=== PATIENT | female | born 1995 | race African-American/Black ===

== ENCOUNTER 2017-01-30 12:55 | Emergency (ER) | payer SELFPAY ==
[2017-01-30 13:34] LABS: Bilirubin Negative (Negative); Glucose, Urine (Dipstick) Negative (Negative); Ketone, Urine Negative (Negative); Nitrite Negative (Negative); Protein, Urine (Dipstick) Negative (Neg-Trace)
[2017-01-30 13:38] LABS: #Basophils 0.1 thou/uL (0.0-0.2); #Lymphocytes 1.2 thou/uL (1.20-3.40); #Monocytes 0.3 thou/uL (0.11-0.59); #Neutrophils 3.8 thou/uL (1.40-6.50); %Basophils 0.9 % (0.0-1.0); %Eosinophils 0.9 % (0.0-10.0); %Lymphocytes 21.4 % (21.0-51.0); %Monocytes 6.4 % (0.0-10.0); Hematocrit 47.8 % (36.0-47.0); Mean Platelet Volume 7.5 fL (7.4-10.4); Red Blood Cell (RBC) Count 4.83 mill/uL (4.20-5.40); White Blood Cell (WBC) Count 5.4 thou/uL (4.8-10.8)
[2017-01-30 13:39] LABS: Bacteria/HPF None Seen HPF (None Seen); Hyaline Casts/LPF 0-3 HYALINE CAST LPF (0-3 Hyaline); RBC/HPF 0-3 HPF (0-3); Squamous Epithelial 0-3 HPF (0-3); WBC/HPF 0-3 HPF (0-3)
[2017-01-30 13:43] LABS: Blood, Urine Negative (Negative)
[2017-01-30 13:58] LABS: ALT (SGPT) 10 U/L (8-55); AST (SGOT) 18 U/L (5-34); Alkaline Phosphatase 69 U/L (40-150); Anion Gap 13 mmol/L (10-20); BUN (Urea Nitrogen) 6 mg/dL (7.0-18.7); Bilirubin, Total 0.7 mg/dL (0.2-1.2); Calc. Creatinine Clearance 0 mL/min (70-130); Calcium 9.9 mg/dL (7.8-10.44); Carbon Dioxide 24 mmol/L (22-29); Chloride 105 mmol/L (98-107); Estimated GFR-MDRD Greater than 90; Globulin 3.9 g/dL (2.4-3.5); Protein, Total 8.9 g/dL (6.0-8.3)
[2017-01-30] MEDS ORDERED: ISOVUE-370 76%-LOCM 1 ML ONE (14:53)
--- NOTE | 2017-01-30 16:47 | CT ---
ABDOMEN AND PELVIC CT SCAN WITH IV CONTRAST: 01/30/17 HISTORY: 21-year-old female with right sided abdominal pain and cramping which began several days ago. The dixie ng bases are clear. the visualized liver, gallbladder, pancreas, spleen, adrenal glands are unremark able. No renal calculus or acute obstruction. Normal appearing appendix. There is some minimal free pel conrad and cul-de-sac fluid. Uterus and adnexal regions are unremarkable. No evidence for bowel obstruc tion, abnormal fluid collection, abscess or adenopathy. IMPRESSION: Trace free pelvic and cul-de-sac fluid. No significant acute process in the abdomen and pelvis. POS: [facility]
== END 2017-01-30 17:10 | disposition home or self-care (01) ==
LOC: ERS 12:55
DX: K21.9 Gastro-esophageal reflux disease without esophagitis (principal); F31.9 Bipolar disorder, unspecified; F17.210 Nicotine dependence, cigarettes, uncomplicated
CPT/HCPCS: 36415; 74177; 80053; 81003; 81025; 85025

== ENCOUNTER 2017-04-04 12:16 | Emergency (ER) | payer OTHER, SELFPAY ==
[2017-04-04] MEDS ORDERED: Ketorolac Tromethamine 30 MG/ML VIAL ONE (13:30)
[2017-04-04] MEDS ORDERED: Dexamethasone 10 MG/ML VIAL ONE (13:30)
[2017-04-04] MEDS ORDERED: Lidocaine Viscous Sol 2% 15 ml UD Cup ONE (13:38)
[2017-04-04] MEDS ORDERED: Bupivacaine 0.5% 10 ML VIAL ONE (13:38)
[2017-04-04 13:41] LABS: #Basophils 0.1 thou/uL (0.0-0.2); #Eosinphils 0.1 thou/uL (0.0-0.7); #Lymphocytes 1.6 thou/uL (1.20-3.40); #Monocytes 0.5 thou/uL (0.11-0.59); #Neutrophils 4.7 thou/uL (1.40-6.50); %Basophils 2.1 % (0.0-1.0); %Eosinophils 1.8 % (0.0-10.0); %Lymphocytes 22.1 % (21.0-51.0); %Monocytes 7.3 % (0.0-10.0); %Neutrophils 66.8 % (42.0-75.0); Hemoglobin 15.4 g/dL (12.0-16.0); Mean Corpuscular HGB CONC 33.6 g/dL (32.0-36.0); Mean Corpuscular Hemoglobin 31.4 pg (27.0-31.0); Mean Corpuscular Volume 93.5 fl (81.0-99.0); Mean Platelet Volume 6.9 fL (7.4-10.4); Platelet Count 300 thou/uL (130-400); RBC Distribution Width 11.6 % (11.5-14.5); Red Blood Cell (RBC) Count 4.91 mill/uL (4.20-5.40); White Blood Cell (WBC) Count 7.1 thou/uL (4.8-10.8)
[2017-04-04 13:54] LABS: Anion Gap 15 mmol/L (10-20); BUN (Urea Nitrogen) 5 mg/dL (7.0-18.7); Calc. Creatinine Clearance 0 mL/min (70-130); Calcium 9.6 mg/dL (7.8-10.44); Carbon Dioxide 21 mmol/L (22-29); Chloride 105 mmol/L (98-107); Estimated GFR-MDRD Greater than 90; Glucose 77 mg/dL (70-105); Sodium 137 mmol/L (136-145)
[2017-04-04] MEDS ORDERED: Clindamycin/D5W 900 mg/50 ml Premix Bag ONE (16:17)
[2017-04-04] MEDS ORDERED: Ondansetron HCl/PF 4 MG/2 ML Vial ONE (16:17)
--- NOTE | 2017-04-04 16:49 | CT ---
CT OF THE SOFT TISSUES OF THE NECK WITH IV CONTRAST: INDICATIONS: History of left-sided dental pain and neck swelling for two weeks. FINDINGS: There is disruption of the posterior bone, adjacent to a posterior-most left maxillary molar with enh ancing periapical soft tissue density, measuring 1.9 cm (image 21, series 3), suspicious for periodon dora disease with an associated periapical abscess. There is some soft tissue gas seen within the reg ion of the gums, as well as the adjacent left private investigator space, best seen on image 23 of series 3. T here is soft tissue swelling of the left private investigator space, as well as edema seen within the left para pharyngeal space and the left submandibular region. There are mildly prominent lymph nodes within th e submandibular region, one seen measuring 1.2 cm (image 41 of series 3). Submandibular glands and parotid glands appear within normal limits. The visualized aerodigestive tr act appears within normal limits. There is a small amount of periapical lucency involving the left p osterior mandibular molar without evidence of osseous disruption. The visualized paranasal sinuses a nd mastoid air cells are clear. The visualized lung apices are clear. IMPRESSION: 1. Findings suspicious for a small periapical abscess involving the left posterior maxillary molar w ith surrounding phlegmon in the adjacent left private investigator space, left parapharyngeal space, and left s ubmandibular region. No large drainable fluid collection is grossly evident. 2. Enlargement of the left submandibular lymph nodes. 3. Small amount of periapical lucency involving a left posterior mandibular molar, likely reflecting an additional region of periodontal disease. 4. Findings were called to Dr. Nolasco at 4:10 p.m. on 04/04/2017. CODE CR POS: [facility]
== END 2017-04-04 16:37 | disposition home or self-care (01) ==
LOC: SCSER 12:16
DX: K08.89 Other specified disorders of teeth and supporting structures (principal); F31.9 Bipolar disorder, unspecified; F17.210 Nicotine dependence, cigarettes, uncomplicated
CPT/HCPCS: 70491; 80048; 83605; 85025; 96374; 96375; 99406; J1100; J1885; J2270; J2405; J3490

== ENCOUNTER 2017-04-11 12:30 | Emergency (ER) | payer SELFPAY ==
[2017-04-11] MEDS ORDERED: Ibuprofen 800 MG TAB ONE (14:26)
[2017-04-11] MEDS ORDERED: HYDROcodone/Acetaminophen 5/325 mg Tablet ONE (14:26)
== END 2017-04-11 15:09 | disposition home or self-care (01) ==
LOC: ERS 12:30
DX: K02.9 Dental caries, unspecified (principal); F31.9 Bipolar disorder, unspecified; F17.210 Nicotine dependence, cigarettes, uncomplicated
CPT/HCPCS: 99282

== ENCOUNTER 2017-07-12 20:54 | Emergency (ER) | payer SELFPAY | END 2017-07-12 21:00 | disposition left against medical advice (07) | LOC: ERS 20:54 | DX: Z53.21 Procedure and treatment not carried out due to patient leaving prior to being seen by health care provider (principal) ==

== ENCOUNTER 2018-05-16 10:06 | Emergency (ER) | payer OTHER, SELFPAY ==
[2018-05-16 11:22] LABS: #Eosinphils 0.1 thou/uL (0.0-0.7); #Lymphocytes 1.8 thou/uL (1.20-3.40); #Monocytes 0.5 thou/uL (0.11-0.59); #Neutrophils 5.3 thou/uL (1.40-6.50); %Basophils 0.4 % (0.0-1.0); %Eosinophils 1.1 % (0.0-10.0); %Lymphocytes 23.5 % (21.0-51.0); %Monocytes 6.7 % (0.0-10.0); %Neutrophils 68.3 % (42.0-75.0); Hemoglobin 14.7 g/dL (12.0-16.0); Mean Corpuscular HGB CONC 33.9 g/dL (32.0-36.0); Mean Corpuscular Hemoglobin 33.6 pg (27.0-31.0); Mean Corpuscular Volume 99.3 fL (78.0-98.0); Mean Platelet Volume 7.9 fL (7.4-10.4); Platelet Count 231 thou/uL (130-400); RBC Distribution Width 12.2 % (11.5-14.5); Red Blood Cell (RBC) Count 4.37 mill/uL (4.20-5.40); White Blood Cell (WBC) Count 7.8 thou/uL (4.8-10.8)
[2018-05-16 13:04] LABS: Bilirubin Negative (Negative); Blood, Urine Small (Negative); Clarity CLOUDY (Clear); Glucose, Urine (Dipstick) Negative (Negative); Leukocyte Large (Negative); Nitrite Negative (Negative); Protein, Urine (Dipstick) Negative (Neg-Trace); Specific Gravity, Urine 1.008 (1.002-1.036)
[2018-05-16 13:06] LABS: Bacteria/HPF Rare-Few HPF (None Seen); Hyaline Casts/LPF 0-3 HYALINE CAST LPF (0-3 Hyaline); Pathc Cast-AUWi Flag 0.58 (0-2.49); WBC/HPF 21-50 HPF (0-3)
--- NOTE | 2018-05-16 13:59 | ULT ---
ULTRASOUND PELVIS TRANSVAGINAL: Date: 05/16/18 HISTORY: Discharge. COMPARISON: Pelvic ultrasound from 2017. TECHNIQUE: Real-time Swift scale with color Doppler and spectral analysis of the gravid uterus performed transabd ominal approach. FINDINGS: There is a single, viable intrauterine , with average ultrasound age of 19 weeks/0 days. Est imated date of delivery is 10/10/18. Estimated weight is 10 oz, 48th percentile. Cervix not well seen as the urinary bladder was not distended, although appears to measure approximat cameron 3.0 cm. Biometry: BPD: 4.32 cm, 19 weeks/0 days HC: 16.44 cm, 19 weeks/1 day AC: 13.55 cm, 19 weeks/0 days FL: 2.94 cm, 19 weeks/0 days Amniotic fluid index: 12.3 cm. heart rate documented at 150 beats/minute. position is breech and placenta is anterior. Visualized bladder, lateral ventricle, cerebellum, three vessel cord, four chamber heart, stomach, cord insertion, and nose and lips were all normal. IMPRESSION: Normal viable single intrauterine . POS: [facility]
[2018-05-17 18:56] LABS: Chlamydia by PCR Not Detected (NotDetected); GC by PCR Not Detected (NotDetected)
== END 2018-05-16 14:05 | disposition home or self-care (01) ==
LOC: ERS 10:06
DX: O23.42 Unspecified infection of urinary tract in pregnancy, second trimester (principal); O20.9 Hemorrhage in early pregnancy, unspecified; O99.342 Other mental disorders complicating pregnancy, second trimester; F31.9 Bipolar disorder, unspecified; O99.332 Smoking (tobacco) complicating pregnancy, second trimester; Z3A.18 18 weeks gestation of pregnancy
CPT/HCPCS: 36415; 76805; 76856; 81003; 81015; 84702; 85025; 86900; 86901; 87086; 87480; 87491; 87510; 87591; 87660

== ENCOUNTER 2018-09-15 10:01 | Outpatient (CLI) | payer OTHER | END 2018-09-15 10:02 | disposition home or self-care (01) | LOC: BICMRI 10:01 | PROVIDERS: ATTEND Family Medicine | DX: Z53.9 Procedure and treatment not carried out, unspecified reason (principal) ==

== ENCOUNTER 2018-09-28 10:01 | Day surgery (SDC) | payer OTHER ==
[2018-09-28 10:42] VITALS: BP 129/77; TEMP 98.3
[2018-09-28] MEDS ORDERED: hydrALAZINE 20 MG/ML VIAL SLOW IVP PRN (10:59)
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
[2018-09-28] MEDS ORDERED: METRONIDAZOLE IVPB SCH ×2 (11:30→12:00)
[2018-09-28] MEDS ORDERED: ADMIXTURE FEE IVPB SCH (12:00)
== END 2018-09-28 17:23 | disposition home or self-care (01) ==
LOC: L&D/OP 10:01
PROVIDERS: ATTEND Obstetrics & Gynecology
DX: O47.1 False labor at or after 37 completed weeks of gestation (principal); O98.313 Other infections with a predominantly sexual mode of transmission complicating pregnancy, third trimester; A59.01 Trichomonal vulvovaginitis; Z3A.38 38 weeks gestation of pregnancy
CPT/HCPCS: 96365; 96366; 99282

== ENCOUNTER 2018-10-04 09:53 | Inpatient (IN) | payer OTHER ==
[~2018-10-04 09:53] MED LIST: Bupivacaine 0.25% HCL 30 ML VIAL ONE; Lidocaine 2% MPF 10 ML AMP (For Epidural Use) ONE
[2018-10-04 10:10] VITALS: BMI 29.8
[2018-10-04] MEDS ORDERED: Docusate 100 MG CAP PO PRN (11:36)
[2018-10-04] MEDS ORDERED: hydrALAZINE 20 MG/ML VIAL SLOW IVP PRN (11:36)
[2018-10-04] MEDS ORDERED: Butorphanol Tartrate 1 MG/ML VIAL SLOW IVP PRN (11:36)
[2018-10-04] MEDS ORDERED: Carboprost 250 MCG/ML AMP IM PRN (11:36)
[2018-10-04] MEDS ORDERED: Ibuprofen 800 MG TAB PO PRN (11:36)
[2018-10-04] MEDS ORDERED: Promethazine HCl 25 MG/ML VIAL IM PRN (11:36)
[2018-10-04] MEDS ORDERED: Methylergonovine 0.2 MG/ML VIAL IM PRN (11:36)
[2018-10-04] MEDS ORDERED: Lidocaine 1% (PF) 30 ML VIAL SC PRN (11:36)
[2018-10-04] MEDS ORDERED: Ondansetron PF 4 MG/2 ML Vial IVP PRN (11:36)
[2018-10-04] MEDS ORDERED: Acetaminophen 500 MG TAB PO PRN (11:36)
[2018-10-04] MEDS ORDERED: NS / Oxytocin 40 units/1000ml 1,000 ML IV PRN (11:36)
[2018-10-04] MEDS ORDERED: Misoprostol 200 MCG TAB PR PRN (11:36)
[2018-10-04] MEDS ORDERED: Misoprostol 100 MCG TAB VAG SCH (11:45)
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
[2018-10-04 13:04] LABS: Hemoglobin 13.2 g/dL (12.0-16.0); Mean Corpuscular HGB CONC 34.6 g/dL (32.0-36.0); Mean Corpuscular Volume 95.5 fL (78.0-98.0); Mean Platelet Volume 9.5 fL (7.4-10.4); Platelet Count 170 thou/uL (130-400); White Blood Cell (WBC) Count 8.3 thou/uL (4.8-10.8)
[2018-10-04 13:43] LABS: Syphilis Antibody Nonreactive (Nonreactive); Syphilis Antibody Index 0.02 S/CO (<1.00 Non-Reactive)
[2018-10-04 13:43] LABS: Hep B Surf Ag Non-Reactive S/CO (NonReactive)
[2018-10-04 15:44] LABS: Amphetamine Not Detected (NotDetected); Barbiturates Screen Not Detected (NotDetected); Benzodiazepine Screen Not Detected (NotDetected); Cocaine Metabolite Screen Not Detected (NotDetected); Medtox Control Line Valid? VALID (VALID); Medtox Reader # READER 1; Methadone Not Detected (NotDetected); Methamphetamine Not Detected (NotDetected); Opiate Screen Not Detected (NotDetected); Oxycodone Screen Not Detected (NotDetected); Phencyclidine (PCP) Not Detected (NotDetected); THC/Cannabinoid Screen Not Detected (NotDetected); Tricyclic Screen Not Detected (NotDetected)
[2018-10-04] MEDS: Lactated Ringer's 1,000 ML IV SCH ×2 (18:50→20:46)
[2018-10-04] MEDS: Misoprostol 100 MCG TAB VAG SCH ×2 (20:46→22:44)
--- NOTE | 2018-10-04 21:40 | PDOC.LDPN ---
Labor & Delivery Progress Note - Subjective Subjective: comfortable - Objective Vital signs reviewed and normal: yes General: NAD Uterine fundus: non tender SVE: @ 2130 by nurse Alyssa Dilation: 1 Effacement: 25% Station: -3 FHT: category 2 (baseline 135/mod earnestine/occasional decels, had one for 4 min and one for 2) [place] contractions every: none Resuscitative measures: maternal position change (for decels as both happened while on back) - Assessment (1) affected by growth restriction Code(s): O36.5990 - MATERN CARE FOR OTH OR SUSP POOR FETL GRTH, UNSP TRI, UNSP Current Visit: Yes Status: Acute Comment: Induction for IUGR SVE unchanged Pt had decels after cytotec, currently cat 1 for last 30 minutes, but previously had prolonged decel for 4 minutes that resolved with position change -Will start pitocin -Monitor FHT -Cervical check q4h -Epidural if desired by patient Plan: pitocin for augmentation Addendum - Attending - Attending Attestation Date/Time: 10/04/182144 Case discussed with Dr. Combs and heart tracing reviewed. Currently back to category 1 - with moderate variability, accelerations and no decelerations. SVE- unchanged. Will start low dose pitocin for induction.
[2018-10-04] MEDS ORDERED: NS w/ Oxytocin 10 units 500 ML IV SCH (21:45)
--- NOTE | 2018-10-05 01:45 | PDOC.LDPN ---
Labor & Delivery Progress Note - Subjective Subjective: comfortable (sleeping, once woke up complaining of painful ctx) - Objective Vital signs reviewed and normal: yes General: NAD Uterine fundus: non tender SVE: @ [address] Combs Dilation: 1.5 Effacement: 25% Station: -3 FHT: category 1 (mod earnestine/baseline 140/+ accels/no decels), variability present [place] contractions every: 1-2 minutes - Assessment (1) affected by growth restriction Code(s): O36.5990 - MATERN CARE FOR OTH OR SUSP POOR FETL GRTH, UNSP TRI, UNSP Current Visit: Yes Status: Acute Comment: Induction for IUGR SVE changed to 1.5/25/-3 -Continue -Monitor FHT -Cervical check q4h, if cervix more anterior at next check will attempt to place balloon -Epidural if desired by patient Plan: continue plan of care
[2018-10-05] MEDS: Lactated Ringer's 1,000 ML IV SCH ×2 (05:45→23:33)
--- NOTE | 2018-10-05 06:01 | PDOC.LDPN ---
Labor & Delivery Progress Note - Subjective Subjective: painful contractions - Objective Vital signs reviewed and normal: yes General: breathing through contractions Uterine fundus: non tender SVE: @ [address] Combs Dilation: 1.5 Effacement: 75% Station: -3 FHT: category 2 (baseline 130/mod earnestine/few variable decels), variability present [place] contractions every: 1-3 minutes - Assessment (1) affected by growth restriction Code(s): O36.5990 - MATERN CARE FOR OTH OR SUSP POOR FETL GRTH, UNSP TRI, UNSP Current Visit: Yes Status: Acute Comment: Induction for IUGR SVE changed to 1.5/75/-3 -Continue pit, currently at 6 -Monitor FHT -Cervical check q4h, consider balloon -Epidural if desired by patient Plan: continue plan of care
--- NOTE | 2018-10-05 07:55 | PDOC.EVN ---
Event Note - Event Note Event Note: Discussed patient case with Dr. Cole and Dr. Thornton and the decision was made to proceed with balloon. Went to patient room to consent her for procedure and discuss procedure with her. While the nurses and myself were in the room the FHT turned into category 2 with deep decels. Several other nurses appropriately rushed into the room to help. Pitocin was stopped, patient was rolled to her left side. I rechecked her and she was unchanged. The baby heart tones started recovering and as things began settling down the patient got a phone call and began saying very rude and inappropriate comments about the nurses while they were still in the room. After everyone else had left I had a conversation with the patient with just Karen and patients nurse Liliana explaining to the patient what happened and why everyone rushed into her room and that it is important for her to be respectful of others, including the nurses and that they were only trying to help. Patient expressed understanding and agreed to be more friendly towards the nurses. I explained to the patient that my shift has ended and Dr. Manning and Dr. Cole would be taking over her care until she is ready to deliver and they would call me back if need be. Patient was agreeable to this. Patient declined any procedures until her grandmother arrives. She consented to an emergent section if need arises though.
[2018-10-05] MEDS ORDERED: Fentanyl 4 mcg/Bup 0.1% Cadd 100 ML ONE ×2 (08:12→15:00)
[2018-10-05] MEDS ORDERED: Lidocaine 1.5%/Epinephrine 1:200,000 5 ML AMPUL IJ ONE (08:38)
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
[2018-10-05] MEDS ORDERED: Acetaminophen 325 MG TAB PO PRN (12:44)
[2018-10-05] MEDS ORDERED: ePHEDrine/0.9% NaCl/PF SYRINGE 50 mg/10 ml SLOW IVP PRN (12:44)
[2018-10-05] MEDS ORDERED: Promethazine HCl 25 MG SUPP PR PRN ×2 (12:44→16:51)
[2018-10-05] MEDS ORDERED: diphenhydrAMINE 50 MG/ML VIAL IVP PRN ×3 (12:44→16:51)
[2018-10-05] MEDS ORDERED: Ondansetron PF 4 MG/2 ML Vial IVP PRN ×3 (12:44→16:51)
[2018-10-05] MEDS ORDERED: Promethazine HCl 25 MG/ML VIAL IM PRN ×2 (12:44)
[2018-10-05] MEDS ORDERED: Lactated Ringer's 500 ML IV PRN (12:44)
[2018-10-05] MEDS ORDERED: Naloxone HCl 0.4 mg/ml Vial IVP PRN ×6 (12:44→16:51)
[2018-10-05] MEDS ORDERED: Ketorolac Tromethamine 30 MG/ML VIAL IVP PRN (12:44)
[2018-10-05] MEDS ORDERED: Naloxone HCl 0.4 mg/ml Vial IV PRN ×2 (12:44→16:51)
[2018-10-05] MEDS ORDERED: Communication Order-Pharmacy FS SCH ×3 (12:45→17:00)
[2018-10-05] MEDS ORDERED: Fentanyl 4 mcg/Bupivacaine 0.1% Cassette 100 ML EPIDURAL SCH (12:45)
[2018-10-05] MEDS ORDERED: Bicitra 30 ML UDCUP ONE (15:34)
[2018-10-05] MEDS ORDERED: hydrALAZINE 20 MG/ML VIAL SLOW IVP PRN (15:39)
[2018-10-05] MEDS ORDERED: Adacel (T-DAP) 0.5 ML SYRINGE IM ONE (15:39)
[2018-10-05] MEDS ORDERED: Bupivacaine 0.25% HCL 30 ML VIAL ONE (15:43)
[2018-10-05] MEDS ORDERED: MORPHINE 5 MG/10 ML PF VIAL ONE (15:45)
[2018-10-05] MEDS ORDERED: Azithromycin 500 MG VIAL ONE (15:52)
[2018-10-05 15:58] LABS: pH (Cord, venous) 7.19 (7.32-7.43)
[2018-10-05] MEDS ORDERED: Azithromycin 500 MG in Sodium Chloride 0.9% 250 ML 250 ML IVPB ONE (16:00)
[2018-10-05] MEDS ORDERED: Ketorolac Tromethamine 30 MG/ML VIAL ONE ×2 (16:07→16:12)
[2018-10-05] MEDS ORDERED: PROPOFOL 200 MG/20 ML VIAL ONE (16:07)
[2018-10-05] MEDS ORDERED: Ondansetron PF 4 MG/2 ML Vial ONE ×2 (16:07→16:11)
[2018-10-05] MEDS ORDERED: PHENYLEPHRINE-NS 100 MCG/ML 10 ML SYRINGE ONE (16:07)
[2018-10-05] MEDS ORDERED: Succinylcholine Chloride 20 MG/ML 10 ml SYRINGE FS ONE (16:07)
[2018-10-05] MEDS ORDERED: Dexamethasone 20 MG/5 ML VIAL ONE (16:07)
[2018-10-05] MEDS ORDERED: Dexamethasone 4 mg/ml Vial ONE (16:12)
[2018-10-05] MEDS ORDERED: Oxytocin 10 UNITS/ML VIAL ONE (16:15)
[2018-10-05] MEDS ORDERED: L&D-Morphine 4 MG/ML VIAL SLOW IVP PRN (16:51)
[2018-10-05] MEDS ORDERED: Ondansetron HCl/PF 4 MG/2 ML Vial IVP PRN (16:51)
[2018-10-05] MEDS ORDERED: HYDROmorphone 2 MG/ML VIAL SLOW IVP PRN (16:51)
[2018-10-05] MEDS ORDERED: Meperidine HCl/PF 25 MG/ML VIAL SLOW IVP PRN (16:51)
[2018-10-05] MEDS: Ketorolac Tromethamine 30 MG/ML VIAL IVP PRN (20:16)
[2018-10-05] MEDS ORDERED: Ibuprofen 800 MG TAB PO SCH (22:45)
--- NOTE | 2018-10-05 22:51 | PDOC.EVN ---
Event Note - Event Note Event Note: 23 y/o ->1011 who delivered via pLTCS @ 1541 on 10/05 for prolonged bradycardia. Examined 5 hours post-op Pt reports abdominal pain, improved with toradol. She reports minimal lochia. She has not gotten to see her baby yet and is concerned about that. She is going to bottle feed. She has not been up out of bed yet. She is tolerating clear liquids, denies N/V, SOB, chest pain, leg swelling. PE: gen - alert, oriented, NAD Abd - soft, fundus firm 1cm below umbilicus, appropriately tender Skin - incision with dressing intact, no bleeding on dressing Ext - no edema A/P: continue routine post- care -Will give another dose of ancef as pt was stat section and unable to completely prep abdomen -Toradol and norco for pain, will transition to ibuprofen in AM -Discussed condition with patient that in the setting of the de- saturations they were watching closely in nursery but would bring him as soon as he stabilized -ADAT
[2018-10-05] MEDS ORDERED: CEFAZOLIN 1 GM VIAL SLOW IVP SCH (23:55)
[2018-10-05] MEDS ORDERED: ceFAZolin 1 GM/D5W 1 GM in Premix Bag 1 BAG IVPB SCH (23:59)
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
--- NOTE | 2018-10-06 03:17 | OP ---
DATE OF PROCEDURE: 10/05/2018 RESIDENT SURGEON: Rhonda Manning DO [employer]ATIONAL [employer]GER SURGEON: Elizabeth Combs MD ATTENDING SURGEON: Marisa Cole MD PROCEDURE PERFORMED: Primary low-transverse section. PREOPERATIVE DIAGNOSES: 1. Term intrauterine . 2. Intrauterine growth restriction. 3. Trichomonas infection complicating status post treatment. 4. Right hip injury. 5. Persistent bradycardia. POSTOPERATIVE DIAGNOSES: 1. Term intrauterine , delivered. 2. Intrauterine growth restriction. 3. Trichomonas infection complicating status post treatment. 4. Right hip injury. 5. Primary low transverse section. 6. Persistent bradycardia. ANESTHESIA: Epidural and general anesthesia. INDICATIONS FOR PROCEDURE: This is a 23-year-old G2, P0-0-1-0 at 39 and 2 weeks who presented to Labor and Delivery for a scheduled induction of labor for intrauterine growth restriction. heart tones dropped into the 60s for a period of 10 minutes. The patient was taken back to the operating room for a stat section due to bradycardia. PROCEDURE IN DETAIL: The potential for a section was discussed with the patient at length prior to the induction of labor. The patient was taken back to the operating room where she was placed in the supine position with a left tilt and prepped and draped. General anesthesia was utilized as there was no time to bolus the patient's epidural. Cefazolin 2 g IV was given. A Pfannenstiel incision was made with a scalpel and carried down to the level of the fascia, which was sharply nicked. The fascial cut was extended bluntly. The inferior and superior edges of the fascial cut edges were elevated with Todd clamps and the underlying rectus muscles were sharply and bluntly dissected free. The recti were divided digitally and retracted manually. The peritoneum was entered bluntly and retracted manually. The bladder blade was placed. A low transverse score was made with the scalpel and the uterus was entered in the midline with the scalpel. The hysterotomy was extended manually. The was noted to be vertex and was easily delivered by fundal pressure. Mouth and nares were bulb suctioned. Cord was clamped and cut and grossly normal male was handed to waiting nurse. Cord gas was sent for gas analysis. Cord blood was collected. Placenta was extracted and found to be intact with three-vessel cord and sent for pathology. The uterus was externalized and the endometrium was curetted with a dry lap. The bladder blade was replaced and the uterus was closed with a running locking #1 monofilament suture followed by running nonlocking #1 monofilament imbricating suture. Following this, hemostasis was noted. The uterus was internalized and the hysterotomy was again noted to be hemostatic. The peritoneum was closed using 2 -0 chromic. The fascia was closed with a running nonlocking 0 PDS suture. The subcutaneous tissue was irrigated and bleeders were cauterized. The subcutaneous tissue was brought together using 2-0 plain gut. The skin was approximated with 4-0 monofilament. Steri-Strips were placed along with a pressure dressing. Due to stat nature of the section, no count was able to be performed prior to the section, but x-ray did confirm that there were no instruments or supplies within the abdomen. The patient tolerated the procedure well, was taken to the recovery room in stable condition. ESTIMATED BLOOD LOSS: 300 mL. Official report states 1500 mL, however. (cBL = 192 mL based on hematocrit pre and post op) COMPLICATIONS: None. SPECIMENS: Cord blood sent to the lab for blood type and cord gas sent for analysis. Placenta sent for evaluation. FINDINGS: Grossly normal male infant with Apgars of 7 and 8. Placenta was noted to be small, but with three-vessel cord. The placenta was sent for pathology. DRAINS: Barnes to gravity, draining clear urine. Attending Note: I was present and participated in the above documented procedure. Indication: bradycardia, unresolving Procedure: STAT PLTCS, under general. Details: Uncomplicated LTCS. After skin incision, sharp dissection down to fascia. Fascia nicked. Blunt dissection down to uterus. Low transfer incision performed on uterus. quickly delivered (<2 mins) in OA position. Good cry and tone at delivery. Cord clamped and cut. Passed to awaiting edgardo team. Hysterotomy closed in 2-layers. Hemostatic. Peritoneum closed. Fascia closed. Skin closed with suture. Count correct x 3. UOP 200 ml clear urine. QBL 1500 ml. EBL 300 ml. cBL at 24 hours 192 ml. Patient transferred to after routine recovery. Placenta sent to path. Cord gases reassuring. LoryCO Job ID: [id number] MTDD
[2018-10-06] MEDS: Ketorolac Tromethamine 30 MG/ML VIAL IVP PRN (03:27)
[2018-10-06] MEDS ORDERED: HYDROcodone/Acetaminophen 5/325 mg Tablet PO PRN (05:00)
[2018-10-06 06:26] LABS: Hemoglobin 12.2 g/dL (12.0-16.0); Mean Corpuscular HGB CONC 33.2 g/dL (32.0-36.0); Mean Corpuscular Hemoglobin 31.7 pg (27.0-31.0); Mean Corpuscular Volume 95.6 fL (78.0-98.0); Mean Platelet Volume 9.5 fL (7.4-10.4); Platelet Count 156 thou/uL (130-400); RBC Distribution Width 12.6 % (11.5-14.5); Red Blood Cell (RBC) Count 3.85 mill/uL (4.20-5.40); White Blood Cell (WBC) Count 14.9 thou/uL (4.8-10.8)
[2018-10-06] MEDS: Prenatal Vitamin 1 TAB PO SCH (08:47)
[2018-10-06] MEDS: HYDROcodone/Acetaminophen 5/325 mg Tablet PO PRN ×2 (08:48→21:01)
--- NOTE | 2018-10-06 10:39 | RAD ---
ABDOMINAL RADIOGRAPH: 10/05/18 INDICATION: Stat section. Surgical count. FINDINGS: No radiopaque foreign bodies are seen overlying the imaged abdomen and pelvis. There are extrinsic linear densities from overlying artifact. There are scattered subtle areas of air density overlying the pelvis likely postoperative in nature.
[2018-10-06] MEDS: Ibuprofen 800 MG TAB PO SCH ×3 (14:07→21:00)
[2018-10-07] MEDS: Ibuprofen 800 MG TAB PO SCH ×4 (01:57→20:07)
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
[2018-10-07] MEDS: HYDROcodone/Acetaminophen 5/325 mg Tablet PO PRN (09:10)
[2018-10-07] MEDS: Prenatal Vitamin 1 TAB PO SCH (09:10)
[2018-10-07] MEDS: Lactated Ringer's 1,000 ML IV SCH (21:50)
[2018-10-08] MEDS: Ibuprofen 800 MG TAB PO SCH ×2 (01:16→03:20)
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
[2018-10-08 07:49] VITALS: BP 124/82; TEMP 97.8
[2018-10-08] MEDS: Prenatal Vitamin 1 TAB PO SCH (09:09)
== END 2018-10-08 12:29 | disposition home or self-care (01) | DRG 787 ==
LOC: L&D/OP 09:53 → L&D 12:12 → 3SW 10-05 19:19
PROVIDERS: ADMIT Student in an Organized Health Care Education/Training Program; ATTEND Student in an Organized Health Care Education/Training Program
PROC: 10907ZC Drainage of Amniotic Fluid, Therapeutic from Products of Conception, Via Natural or Artificial Opening (ICD-10-PCS; principal; 2018-10-05)
PROC: 10D00Z1 Extraction of Products of Conception, Low, Open Approach (ICD-10-PCS; 2018-10-05)
PROC: 3E0P7VZ Introduction of Hormone into Female Reproductive, Via Natural or Artificial Opening (ICD-10-PCS; 2018-10-05)
PROC: 3E033VJ Introduction of Other Hormone into Peripheral Vein, Percutaneous Approach (ICD-10-PCS; 2018-10-05)
PROC: 0U7C7ZZ Dilation of Cervix, Via Natural or Artificial Opening (ICD-10-PCS; 2018-10-05)
DX: O36.5930 Maternal care for other known or suspected poor fetal growth, third trimester, not applicable or unspecified (principal); O98.82 Other maternal infectious and parasitic diseases complicating childbirth; O99.344 Other mental disorders complicating childbirth; O76 Abnormality in fetal heart rate and rhythm complicating labor and delivery; O71.89 Other specified obstetric trauma; O61.0 Failed medical induction of labor; Z3A.39 39 weeks gestation of pregnancy; Z37.0 Single live birth; Z87.891 Personal history of nicotine dependence; A59.01 Trichomonal vulvovaginitis; F43.21 Adjustment disorder with depressed mood
CPT/HCPCS: 36415; 51702; 74018; 80306; 82805; 85027; 86780; 86850; 86900; 86901; 87340; 88307; 90715; 99285; C1726; J0456; J0595; J0690; J1100; J1885; J2001; J2274; J2405; J2590; J2704; J3490; S0020

== ENCOUNTER 2018-10-12 10:37 | Day surgery (SDC) | payer OTHER ==
[2018-10-12 11:16] VITALS: BMI 27.3
--- NOTE | 2018-10-12 12:08 | PDOC.FPRHP ---
- History of Present Illness Chief Complaint: Elevated blood pressure post History of Present Illness: 23 y/o @ 39.2 WGA delivered via stat pLTCS at 1541 on 10/05/18 for NRFHT with prolonged bradycardia and IUGR. Pt denies any complications since the delivery and states that she and baby have done well. Today the pt was at her follow up visit when her blood pressure was noted to be 130's/80's and repeated to be 140's/80's. Pt was subsequently sent here to be triaged and have labs drawn. Pt denies any headache, fever, chills, n/v, vaginal bleeding/ discharge, dysuria, or vision changes. She does note some increased swelling in her legs today and lower abdominal pain at her incision site. She states her PO intake has been appropriate. Denies a history of HTN or problems with elevated blood pressures during . FHx is significant for HTN in her mother. - OB Labs 10/04/2018 Blood type: O RH: positive HIV: negative Rubella: immune Quad screen: negative Urine drug screen: not done Gonorrhea: negative Chlamydia: negative Pap Smear: NILM 1 hour gtt: 135 A1c: 5.3 H&H: 12.9 / 37.3 Platelets: 273 - Allergies/Adverse Reactions Allergies Allergy/AdvReac Type Severity Reaction Status Date / Time No Known Drug Allergies Allergy Verified 10/12/18 11:10 - Home Medications Medication Instructions Recorded Confirmed Type Ibuprofen [Motrin] 800 mg PO Q6HR #30 tab 10/08/18 10/12/18 Rx - History PMHx: None PSHx: section FHx: Maternal HTN and DM Social: Previous Tobacco use, no alcohol or drug use - Review of Systems General: denies: fever/chills, night sweats, fatigue Eyes: denies: vision changes Respiratory: denies: shortness of breath, exercise intolerance Cardiovascular: reports: edema (lower extremity swelling). denies: chest pain, palpitation Gastrointestinal: reports: abdominal pain (incisional). denies: nausea, vomiting Genitourinary: denies: dysuria, polyuria, discharge Skin: denies: rashes Musculoskeletal: denies: pain, tenderness, stiffness Neurological: denies: numbness, syncope, weakness - Vital signs BP: [] HR: [] RR: [] Tmax: [] Pox: []% on [] Wt: [] - Physical Exam Constitutional: NAD, awake, alert and oriented, well developed HEENT: normocephalic and atraumatic, EOMI, no scleral icterus Neck: supple, FROM Heart: RRR, normal S1/S2, other (trace non-pitting edema to bilateral LE) Lungs: CTAB, no respiratory distress, good air movement Abdomen: soft, other (mild-mod tenderness to low transverse incision, CDI) Musculoskeletal: normal tone, ROM grossly normal Neurological: no focal deficit, CN II-XII intact, normal sensation Skin: no rash/lesions FMR H&P: Results - Labs Result Diagrams: 10/12/18 12:17 10/12/18 12:17 FMR H&P: A/P - Problem List (1) Elevated blood pressure affecting , antepartum Status: Acute Code(s): O16.9 - UNSPECIFIED MATERNAL HYPERTENSION, UNSPECIFIED TRIMESTER (2) Post-op pain Status: Acute Code(s): G89.18 - OTHER ACUTE POSTPROCEDURAL PAIN - Plan Elevated blood pressure -Automated BP cuff trending pressures over next couple hours, currently 141/83 -NPO until labs result d/t possible need for Mg -Labs: CBC, CMP, urine protein/cr, uric acid -Pt notes frustration with being here and her visit today, may also be contributing to elevated pressures -Will DC if labs return normal and BP remain <160 sys with close follow up with her pressures Post operative pain -pt has been taking ibuprofen for pain, reports not receiving a rx for norco -pain may be a component to her elevated bp, will treat appropriately Discussed case with Dr. Lopez Dispo: dependent on pending lab results FMR H&P: Upper Level - Plan Date/Time: 10/12/18 1207 I, [], have evaluated this patient and agree with findings/plan as outlined by business management intern resident. Pertinent changes/additions are listed here. Addendum - Attending - Attending Attestation Date/Time: 10/13/18 1216 I personally evaluated the patient and discussed the management with Dr. Monte I agree with the History, Examination, Assessment and Plan documented above with any addition or exceptions noted below. BPs mostly mild range or normotensive in triage. Pt is asymptomatic Labs significant for elevated urine protein to creatinine ratio but no evidence of end organ damage. Presentation consistent with preeclampsia without severe features. Can d/c to home with followup BP check scheduled for Wednesday Strict return/preeclampsia precautions reviewed. Pt also reports she did not get her [place] Rx prior to leaving hospital last week. has had issues with pain control and has not been controlled with ibuprofen alone. Forgotten RX confirmed with staff. Rx for #15 norco provided after [facility] was checked and she was found to have no rx for controlled substances.
[2018-10-12 12:26] LABS: #Basophils 0.1 thou/uL (0.0-0.2); #Eosinphils 0.2 thou/uL (0.0-0.7); #Lymphocytes 1.3 thou/uL (1.20-3.40); #Monocytes 0.3 thou/uL (0.11-0.59); #Neutrophils 7.4 thou/uL (1.40-6.50); %Basophils 0.8 % (0.0-1.0); %Eosinophils 1.7 % (0.0-10.0); %Lymphocytes 13.8 % (21.0-51.0); %Monocytes 3.3 % (0.0-10.0); %Neutrophils 80.4 % (42.0-75.0); Hemoglobin 12.6 g/dL (12.0-16.0); Mean Corpuscular HGB CONC 32.5 g/dL (32.0-36.0); Mean Corpuscular Hemoglobin 31.2 pg (27.0-31.0); Mean Platelet Volume 7.2 fL (7.4-10.4); Platelet Count 342 thou/uL (130-400); RBC Distribution Width 12.7 % (11.5-14.5); Red Blood Cell (RBC) Count 4.04 mill/uL (4.20-5.40); White Blood Cell (WBC) Count 9.1 thou/uL (4.8-10.8)
[2018-10-12 12:47] LABS: ALT (SGPT) 21 U/L (8-55); AST (SGOT) 15 U/L (5-34); Albumin 3.4 g/dL (3.5-5.0); Alkaline Phosphatase 127 U/L (40-150); Anion Gap 12 mmol/L (10-20); BUN (Urea Nitrogen) 5 mg/dL (7.0-18.7); Bilirubin, Total 0.4 mg/dL (0.2-1.2); Calc. Creatinine Clearance 164 mL/min (70-130); Calcium 8.9 mg/dL (7.8-10.44); Carbon Dioxide 23 mmol/L (22-29); Chloride 108 mmol/L (98-107); Estimated GFR-MDRD Greater than 90; Globulin 3.1 g/dL (2.4-3.5); Glucose 79 mg/dL (70-105); Potassium 3.8 mmol/L (3.5-5.1); Protein, Total 6.5 g/dL (6.0-8.3); Sodium 139 mmol/L (136-145); Uric Acid 4.6 mg/dL (2.6-6.0)
[2018-10-12 13:34] LABS: Creatinine, Urine 92.73 mg/dL (47-110)
== END 2018-10-12 14:34 | disposition home or self-care (01) ==
LOC: L&D/OP 10:37
PROVIDERS: ATTEND Family Medicine
DX: O90.89 Other complications of the puerperium, not elsewhere classified (principal); R03.0 Elevated blood-pressure reading, without diagnosis of hypertension; O99.355 Diseases of the nervous system complicating the puerperium; G89.18 Other acute postprocedural pain
CPT/HCPCS: 36415; 51701; 80053; 82570; 84156; 84550; 85025; 99282; A4353

== ENCOUNTER 2019-01-20 17:33 | Emergency (ER) | payer OTHER, SELFPAY ==
[2019-01-20 18:17] LABS: Bacteria/HPF None Seen HPF (None Seen); Bilirubin Negative (Negative); Blood, Urine Negative (Negative); Clarity Clear (Clear); Glucose, Urine (Dipstick) Normal (Negative); Leukocyte 75 Leu/uL (Negative); Nitrite Negative (Negative); Protein, Urine (Dipstick) Negative (Neg-Trace); RBC/HPF 0-3 HPF (0-3)
[2019-01-20 18:21] LABS: Pregnancy Test - Urine (BHCG) POSITIVE (Negative); Pregu Control Background? CLEAR/WHITE (CLR/WHITE); Pregu Control Bar Appear? YES (CONTROL BAR); Specific Gravity 1.021 (1.002-1.036)
[2019-01-22 21:36] LABS: Chlamydia by PCR Not Detected (NotDetected); GC by PCR Not Detected (NotDetected)
== END 2019-01-20 21:18 | disposition home or self-care (01) ==
LOC: ERS 17:33
DX: O23.41 Unspecified infection of urinary tract in pregnancy, first trimester (principal); F31.9 Bipolar disorder, unspecified; F17.210 Nicotine dependence, cigarettes, uncomplicated; Z3A.01 Less than 8 weeks gestation of pregnancy
CPT/HCPCS: 36415; 81003; 81015; 81025; 84702; 87086; 87480; 87491; 87510; 87591; 87660; 99283

== ENCOUNTER 2019-01-30 15:09 | Emergency (ER) | payer MEDICAID, SELFPAY ==
--- NOTE | 2019-01-30 16:09 | ULT ---
US Pelvic Transvag W Doppler History: with spotting Comparison: Pelvic ultrasound May 2018 Findings: Real-time grayscale color and spectral analysis of the pelvis was performed transabdominal and transvaginal approach. The uterus has a large posterior fundal fibroid measuring up to 3.5 cm. There is intrauterine gestati onal sac with a small yolk sac without pole identified. The mean sac diameter is 0.62 cm. The yolk sac diameter of 0.15 cm. No pole is yet appreciated. Adequate vascular flow to both ovaries. Impression: Small intrauterine gestational sac and yolk sac may reflect early . Close follow -up hCG and ultrasound is recommended.
[2019-01-30 16:27] LABS: Eosinophils 1 % (0-10); Hemoglobin 14.1 g/dL (12.0-16.0); Lymphocytes 24 % (21-51); MDiff Complete? YES; Mean Corpuscular HGB CONC 31.5 g/dL (32.0-36.0); Mean Corpuscular Hemoglobin 27.3 pg (27.0-31.0); Mean Corpuscular Volume 86.6 fL (78.0-98.0); Mean Platelet Volume 8.1 fL (7.4-10.4); Monocytes 6 % (0-10); Neutrophil 67 % (42-75); Platelet Count 328 thou/uL (130-400); Platelet Morphology Comment Appears Adequate; RBC Distribution Width 15.7 % (11.5-14.5); Reactive Lymphocytes 2 % (0-10); Red Blood Cell (RBC) Count 5.15 mill/uL (4.20-5.40); White Blood Cell (WBC) Count 8.5 thou/uL (4.8-10.8)
== END 2019-01-30 16:27 | disposition left against medical advice (07) ==
LOC: SCSER 15:09
DX: O20.0 Threatened abortion (principal); O99.341 Other mental disorders complicating pregnancy, first trimester; F31.9 Bipolar disorder, unspecified; O99.331 Smoking (tobacco) complicating pregnancy, first trimester; F17.210 Nicotine dependence, cigarettes, uncomplicated; Z3A.01 Less than 8 weeks gestation of pregnancy
CPT/HCPCS: 76856; 84702; 85025

== ENCOUNTER 2019-01-31 03:28 | Emergency (ER) | payer OTHER | END 2019-01-31 04:02 | disposition home or self-care (01) | LOC: SCSER 03:28 | DX: O20.0 Threatened abortion (principal); O99.341 Other mental disorders complicating pregnancy, first trimester; F31.9 Bipolar disorder, unspecified; O99.331 Smoking (tobacco) complicating pregnancy, first trimester; F17.210 Nicotine dependence, cigarettes, uncomplicated; Z3A.01 Less than 8 weeks gestation of pregnancy ==

== ENCOUNTER 2019-02-01 20:21 | Emergency (ER) | payer OTHER ==
[2019-02-01 21:01] LABS: #Basophils 0.2 thou/uL (0.0-0.2); #Eosinphils 0.1 thou/uL (0.0-0.7); #Lymphocytes 2.1 thou/uL (1.20-3.40); #Monocytes 0.7 thou/uL (0.11-0.59); #Neutrophils 4.8 thou/uL (1.40-6.50); %Basophils 2.9 % (0.0-1.0); %Eosinophils 1.2 % (0.0-10.0); %Lymphocytes 26.8 % (21.0-51.0); %Monocytes 9.1 % (0.0-10.0); %Neutrophils 60.1 % (42.0-75.0); Hemoglobin 13.4 g/dL (12.0-16.0); Mean Corpuscular HGB CONC 32.5 g/dL (32.0-36.0); Mean Corpuscular Volume 86.2 fL (78.0-98.0); Mean Platelet Volume 7.8 fL (7.4-10.4); Platelet Count 327 thou/uL (130-400); RBC Distribution Width 15.6 % (11.5-14.5); Red Blood Cell (RBC) Count 4.79 mill/uL (4.20-5.40)
--- NOTE | 2019-02-01 21:53 | ULT ---
TRANSABDOMINAL TRANSVAGINAL PELVIC ULTRASOUND DATE:: 02/01/2019 8:42 PM CLINICAL HISTORY: Early with vaginal bleeding. COMPARISON: Prior pelvic ultrasound dated January 22, 2019 TECHNIQUE: Grayscale, color Doppler and spectral Doppler images were obtained of the pelvis see a tra nsabdominal transvaginal approach Uterus: Size: 9.6 x 5.2 x 6.1 cm Mass: 1.9 cm fibroid within the posterior uterine body Cervix: Within normal limits Endometrium: Normal Endometrial Thickness: 7.7 mm Previously seen intrauterine gestational sac and yolk sac are no longer identified. Ovaries: Size: right measures 3.3 x 1.3 x 1.7 cm; left measures 2.3 x 2.0 x 2.1 cm Mass: None. Flow: Normal Cul-de-sac: Mild free fluid in the posterior cul-de-sac IMPRESSION: Findings most consistent with missed . Previously seen intrauterine gestational sac is no jennifer jennifer identified. Mild free fluid in the pelvis. Small posterior uterine body intramural fibroid.
== END 2019-02-01 21:58 | disposition home or self-care (01) ==
LOC: SCSER 20:21
DX: O02.1 Missed abortion (principal); F31.9 Bipolar disorder, unspecified; F17.210 Nicotine dependence, cigarettes, uncomplicated
CPT/HCPCS: 76856; 84702; 85025; 86900; 86901; 99281

== ENCOUNTER 2019-03-02 06:32 | Emergency (ER) | payer MEDICAID, OTHER ==
[2019-03-02 08:51] LABS: Bilirubin Negative (Negative); Blood, Urine Negative (Negative); Clarity Clear (Clear); Glucose, Urine (Dipstick) Normal (Negative); Leukocyte 25 Leu/uL (Negative); Nitrite Negative (Negative); Pregnancy Test - Urine (BHCG) Negative (Negative); Pregu Control Background? CLEAR/WHITE (CLR/WHITE); Pregu Control Bar Appear? YES (CONTROL BAR); Protein, Urine (Dipstick) Negative (Neg-Trace); RBC/HPF 0-3 HPF (0-3); Specific Gravity 1.018 (1.002-1.036); Squamous Epithelial 0-3 HPF (0-3); Urobilinogen Normal mg/dL (Less than 2)
[2019-03-02 09:14] LABS: Bacteria/HPF Rare-Few HPF (None Seen)
[2019-03-02] MEDS ORDERED: Ketorolac Tromethamine 30 MG/ML VIAL ONE (09:17)
== END 2019-03-02 09:35 | disposition home or self-care (01) ==
LOC: ERS 06:32
DX: M54.9 Dorsalgia, unspecified (principal); F31.9 Bipolar disorder, unspecified; F17.210 Nicotine dependence, cigarettes, uncomplicated
CPT/HCPCS: 81003; 81015; 81025; 96372; 99283; J1885

== ENCOUNTER 2019-04-14 09:40 | Emergency (ER) | payer OTHER | END 2019-04-14 11:02 | disposition left against medical advice (07) | LOC: ERS 09:40 | DX: Z53.21 Procedure and treatment not carried out due to patient leaving prior to being seen by health care provider (principal) | CPT/HCPCS: 36415; 84702 ==

== ENCOUNTER 2019-08-04 18:21 | Day surgery (SDC) | payer OTHER ==
[2019-08-04 19:11] VITALS: BP 128/81; TEMP 98.8; BMI 27.7
[2019-08-04] MEDS ORDERED: hydrALAZINE 20 MG/ML VIAL SLOW IVP PRN (19:53)
--- NOTE | 2019-08-04 19:54 | PDOC.FPROB ---
FMR OB H&P: HPI - History of Present Illness Chief Complaint: Light Spotting Indentification: @ 24.6W EGA by 8.2W US History of Present Illness: Patient is a 24 y/o female at 24.6W EGA by 8.2W US who presents to L&D for evaluation of one episode of vaginal spotting. Patient states that she saw a "small amount of pink tinge" on the toilet paper after she wiped earlier today. She states that she had sexual intercourse the night prior, but denies any new partners since she became . She endorsed good movement but denied gross loss of fluid or vaginal bleeding, ABD pain, CTX , or increased vaginal pressure, as well as recent trauma, dysuria, hematuria, persistent vaginal discharge, vaginal pruritis, new-onset lesions or rashes, or foul vaginal odor. Patient also denied recent fevers, chills, [place]WIN, visual disturbances, auditory disturbances, persistent rhinorrhea or epistaxis, N/V/D/C , breast discharge or tenderness, myalgias or arthralgias. Patient denies recent travel or sick contact / exposure to known COVID-19 patients. Primary Care Physician: RANJIT - Dr. Combs / Dr. 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 - Family History Family History: Non-Contributory FMR OB H&P: Medications - Current Home Medications: Medication Instructions Recorded Confirmed Type 21/Iron Fu/Folic Acid 1 tablet PO DAILY 08/04/19 08/04/19 History [ Complete Caplet] Clotrimazole [Clotrimazole-7] 1 appful VAG HS 7 Days #1 tube 08/05/19 Rx Nitrofurantoin Monohyd/M-Cryst 100 mg PO BID 7 Days #14 capsule 08/05/19 Rx [Macrobid 100 mg Capsule] metroNIDAZOLE [Flagyl] 500 mg PO BID 7 Days #14 tab 08/05/19 Rx Allergies/Adverse Reactions: Allergies Allergy/AdvReac Type Severity Reaction Status Date / Time No Known Drug Allergies Allergy Verified 08/04/19 19:00 FMR OB H&P: ROS - Review of Systems General: reports: fatigue. denies: fever/chills, recent trauma Eyes: denies: vision changes ENT: reports: rhinorrhea. denies: frequent nose bleed, sore throat Cardiovascular: denies: chest pain, edema Respiratory: denies: cough, shortness of breath Gastrointestinal: denies: abdominal pain, cramping, nausea, vomiting, diarrhea, constipation, bright red blood, dark black tarry stools Genitourinary (Female): reports: vaginal discharge. denies: dysuria, hematuria , vaginal pain, vaginal bleeding, vaginal mass/sore, contractions, vaginal pressure Musculoskeletal: denies: arthritis/arthralgias Neurologic: denies: headache Integumentary: denies: itching, rash, lesions Breast: denies: lumps, bumps, nipple changes FMR OB H&P: Vital Signs - Maternal Vital signs: Vital Signs - First Documented Temp Pulse Resp BP Pulse Ox 98.8 F 101 H 18 128/81 100 08/04/19 18:57 08/04/19 18:57 08/04/19 18:57 08/04/19 18:57 08/04/19 18:57 - Heart Tones Baseline: 150 Variability: moderate Acceleration: absent Deceleration: absent FMR OB H&P: Physical Exam - Physical Exam General: NAD, awake, alert and oriented HEENT: normocephalic and atraumatic, PERRLA, EOMI, MMM, conjunctiva clear, no scleral icterus, grossly normal vision, grossly normal hearing, normal nasal mucosa, oropharynx clear, good dention Neck: supple, FROM, trachea midline, no LAD, no JVD Chest: non-tender to palpation, no lesions Breast: symmetric Heart: RRR, normal S1/S2, no murmurs/rubs/gallops, pulses present, no edema General: CTAB, no respiratory distress, good air movement, no rales/rhonchi, no wheezing, no retractions Abdomen: gravid, non-tender, bowel sound present, no masses Musculoskeletal: pulses present, FROM in all four extremities, no misalignment/ asymmetry, no atrophy Neurological: sensation to pain,touch and proprioception grossly normal Skin: no rash, capillary refill <2 seconds, no jaundice Lymphatic: no unusual bruising or bleeding, no purpura, no petechia, no LAD Psychiatric: intact recent and remote memory, good judgement and insight, normal mood and affect - Pelvic Exam Cervix: no masses, no lesions, no blood SVE: Closed/Thick/High FMR OB H&P: A/P - Problem List (1) Status: Acute (2) Vaginal spotting Status: Acute Code(s): N93.9 - ABNORMAL UTERINE AND VAGINAL BLEEDING, UNSPECIFIED (3) Tobacco abuse Status: Acute Code(s): Z72.0 - TOBACCO USE Disposition: Patient is a 24 y/o @ 24.6W EGA by 8.2W who presents to L&D for evaluation of vaginal spotting. 1. -Patient does not endorse signs or symptoms consistent with placental abruption , pre-term labor or PPROM -Maternal VSS - no elevated BPs while on L&D -Physical exam WNL -FHTs in the 150s, no acels or decels noted w/o CTX n -Per chart review, patient has adequate follow-up with [facility] -See #2 2. Vaginal Spotting -Likely 2/2 trauma from recent sexual intercourse w/ possible infectious cause based on previous Trichomoniasis -Will perform Spec / Digital Exam, UA w/ Reflex Culture, VP3, GC/CT -Will plan to tailor results accordingly based on above results 3. Tobacco Abuse -Patient endorses smoking 1 PPD despite being -Patient was counseled on the importance of tobacco abuse cessation PCP: RANJIT - Dr. Combs / Dr. Cole Dispo: Patient is non-septic appearing without strong concern for placental abruption, pre-term labor, or PPROM. Will perform diagnostic tests as per above and call in medications to patient's preferred pharmacy if needed. Expected LOS < 2H. Discussion: Date/Time: 05/01/20 1954 This H&P was discussed with [] and [] who agree with the above documentation and plan. Addendum - Attending - Attending Attestation Date/Time: 08/05/191845 I personally evaluated the patient and discussed the management with Dr. Valencia last evening. I agree with the History, Examination, Assessment and Plan documented above with any addition or exceptions noted below.
[2019-08-04 20:41] LABS: Bilirubin Negative (Negative); Blood, Urine Negative (Negative); Clarity Clear (Clear); Glucose, Urine (Dipstick) Normal (Negative); Leukocyte 500 Leu/uL (Negative); Nitrite Negative (Negative); Protein, Urine (Dipstick) Negative (Neg-Trace); RBC/HPF 0-3 HPF (0-3); Renal Epithelial 0-3 HPF (None Seen); Squamous Epithelial 0-3 HPF (0-3); Urobilinogen Normal mg/dL (Less than 2); WBC/HPF 21-50 HPF (0-3); Yeast-Budding 1+ HPF (None Seen)
[2019-08-04 20:47] LABS: Bacteria/HPF 1+ HPF (None Seen)
[2019-08-04 20:48] LABS: Urine Culture Reflex Yes Yes
[2019-08-05 22:38] LABS: Chlamydia by PCR Not Detected (NotDetected); GC by PCR Not Detected (NotDetected)
== END 2019-08-04 20:33 | disposition home or self-care (01) ==
LOC: L&D/OP 18:21
PROVIDERS: ATTEND Student in an Organized Health Care Education/Training Program
DX: O26.852 Spotting complicating pregnancy, second trimester (principal); O99.332 Smoking (tobacco) complicating pregnancy, second trimester; F17.210 Nicotine dependence, cigarettes, uncomplicated; Z3A.24 24 weeks gestation of pregnancy
CPT/HCPCS: 81001; 87086; 87480; 87491; 87510; 87591; 87660; 99285

== ENCOUNTER 2022-03-30 20:40 | Emergency (ER) | payer OTHER | END 2022-03-31 00:32 | disposition home or self-care (01) | LOC: ERS 20:40 | DX: B34.9 Viral infection, unspecified (principal); F17.210 Nicotine dependence, cigarettes, uncomplicated | CPT/HCPCS: 71045; 87804 ==

== ENCOUNTER 2024-02-05 09:46 | Emergency (ER) | payer OTHER, SELFPAY ==
[2024-02-05 11:18] LABS: BHCG - Serum Negative (NEGATIVE); Pregs Control Background? CLEAR/WHITE (CLR/WHITE); Pregs Control Bar Appear? YES (CONTROL BAR)
[2024-02-05] MEDS ORDERED: Ketorolac Tromethamine 30 MG (1 mL) VIAL ONE (11:21)
[2024-02-05] MEDS ORDERED: Boostrix 0.5 ML (Tdap) VIAL (>/=7 yrs of age) ONE (11:22)
== END 2024-02-05 13:26 | disposition home or self-care (01) ==
LOC: ERS 09:46
DX: S81.001A Unspecified open wound, right knee, initial encounter (principal); S80.212A Abrasion, left knee, initial encounter; S70.01XA Contusion of right hip, initial encounter; M54.50 Low back pain, unspecified; F17.210 Nicotine dependence, cigarettes, uncomplicated; V49.9XXA Car occupant (driver) (passenger) injured in unspecified traffic accident, initial encounter; Y93.39 Activity, other involving climbing, rappelling and jumping off; Z23 Encounter for immunization
CPT/HCPCS: 36415; 70450; 72125; 72131; 84703; 90471; 90715; 96372; J1885